=== PATIENT | female | born 1975 | race Caucasian/White ===

== ENCOUNTER 2017-10-26 10:08 | Day surgery (SDC) ==
[2017-10-26] MEDS ORDERED: LIDOCAINE 1% 20 ML MDV ID STA (11:03)
[2017-10-26 11:11] VITALS: TEMP 98.5
[2017-10-26] MEDS ORDERED: VERSED ONE (12:03)
[2017-10-26] MEDS ORDERED: DIPRIVAN 20 ML VIAL IVP ONE (12:03)
[2017-10-26 12:54] VITALS: BP 100/46
--- NOTE | 2017-10-28 11:09 | OP ---
INDICATIONS FOR PROCEDURE: 41-year-old female presents for a screening colonoscopy exam. She had a maternal grandmother with colon cancer at age 62 and her mother had colon polyps at less than 60 years old. MEDICATIONS: SEE ANESTHESIA NOTES. PROCEDURE: SCREENING COLONOSCOPY. REPORT: The risks, benefits, alternatives and limitations were discussed in detail with the patient. Informed consent was obtained. After adequate sedation was achieved, a digital rectal exam revealed good tone, no masses. The colonoscope was introduced into the rectum and advanced under direct visual guidance to the cecum. The cecum was identified by the appendiceal orifice and IC valve. I then slowly withdrew the scope in a circumferential manner examining the mucosa quite carefully. I looked on the proximal and distal side of the folds and flexures as best as possible. I was able to retroflex the scope in the right colon as well as the left colon. The colonic mucosa was unremarkable its entire length including on retroflex view of the anal canal. The prep was excellent. The withdrawal time was 6 minutes. The patient tolerated the procedure well with stable vital signs and pulse oximetry throughout. IMPRESSION: 1. NORMAL COLONOSCOPY EXAM. RECOMMENDATIONS: 1. High fiber diet. 2. Office visit as needed. 3. Consider screening colonoscopy exam again in five years based on her family history; sooner if signs or symptoms would indicate otherwise. CC: DR. ABRAN ROSADO
== END 2017-10-26 13:10 | disposition home or self-care (01) ==
LOC: SURG 10:08
PROVIDERS: ATTEND Internal Medicine Gastroenterology
DX: Z83.71 Family history of colonic polyps (principal); Z12.11 Encounter for screening for malignant neoplasm of colon; Z80.0 Family history of malignant neoplasm of digestive organs